=== PATIENT | female | born 1945 | race Caucasian/White ===

== ENCOUNTER 2023-08-11 13:59 | Inpatient (IN) | payer BC ==
[~2023-08-11] VITALS: Ht 167.6 cm; Wt 93.6 kg
[2023-08-11] MEDS: ALBUTEROL SULFATE 2.5 MG/3 ML NEBU NEB ONE (14:18)
[2023-08-11] MEDS: IPRATROPIUM BROMIDE 0.5 MG/2.5 ML NEBU NEB ONE (14:18)
[2023-08-11 14:20] VITALS: O2SAT 90
[2023-08-11] MEDS ORDERED: ALBUTEROL SULFATE 2.5 MG/3 ML NEBU ONE (14:21)
[2023-08-11] MEDS ORDERED: IPRATROPIUM BROMIDE 0.5 MG/2.5 ML NEBU ONE (14:22)
[2023-08-11] MEDS ORDERED: methylPREDNISolone SOD SUCC 125 MG/2 ML VIAL ONE (14:30)
[2023-08-11 14:34] LABS: BASOPHILS % (AUTO) 0.4 % (0.0-2.0); EOSINOPHILS % (AUTO) 0.6 % (0.0-7.0); HEMATOCRIT 43.1 % (31.2-41.9); HEMOGLOBIN 14.4 g/dL (10.9-14.3); LYMPHOCYTES % (AUTO) 13.6 % (20.5-51.5); MEAN CORPUSCULAR HEMOGLOBIN 30.3 uug (24.7-32.8); MEAN CORPUSCULAR HGB CONC 33 g/dL (32.3-35.6); MEAN CORPUSCULAR VOLUME 90.7 fL (75.5-95.3); MONOCYTES # (AUTO) 0.5 K/uL (0.1-1.30); MONOCYTES % (AUTO) 6.7 % (0.0-11.0); NEUTROPHILS # (AUTO) 5.6 K/uL (1.8-8.9); NEUTROPHILS % (AUTO) 78.7 % (38.5-71.5); PLATELET COUNT (AUTO) 211 K/uL (179-408); RED BLOOD CELL COUNT(AUTO) 4.76 MIL/uL (3.63-4.92); RED CELL DISTRIBUTION WIDTH 13.5 % (12.3-17.7); WHITE BLOOD COUNT (AUTO) 7.1 K/uL (3.8-11.8)
[2023-08-11] MEDS: methylPREDNISolone SOD SUCC 125 MG/2 ML VIAL IV ONE (14:35)
[2023-08-11 14:40] LABS: CALCIUM 8.2 mg/dL (8.5-10.1); CARBON DIOXIDE 26 mmol/L (21-32); CHLORIDE 105 mmol/L (98-107); CREATININE 0.6 mg/dL (0.6-1.3); GLUCOSE 167 mg/dL (74-106); POTASSIUM 4.4 mmol/L (3.5-5.1); SODIUM SERUM 139 mmol/L (136-145); UREA NITROGEN, BLOOD 12 mg/dL (7-18)
[2023-08-11 14:42] LABS: DIFFERENTIAL COMMENT 1
[2023-08-11 14:53] LABS: ALANINE AMINOTRANSFERASE 17 U/L (14-59); ALBUMIN 2.8 g/dL (3.4-5.0); ALKALINE PHOSPHATASE 117 U/L (50-136); ASPARTATE AMINOTRANSFERASE 12 U/L (15-37); BILIRUBIN,DIRECT 0.1 mg/dL (0.0-0.2); BILIRUBIN,TOTAL 0.4 mg/dL (0.2-1.0); NT-PRO BNP 169 pg/mL (0-125); TOTAL PROTEIN, SERUM 6.8 g/dL (6.4-8.2)
[2023-08-11 14:59] LABS: *BILIRUBIN,URIN NEGATIVE (NEGATIVE); *CLARITY,URINE CLEAR (CLEAR); *COLOR,URINE YELLOW (YELLOW); *KETONES,URINE NEGATIVE (NEGATIVE); *PROTEIN,URINE TRACE (NEGATIVE); LEUKOCYTE ESTERASE ,URINE 2+ (NEGATIVE); NITRITE, URINE POSITIVE (NEGATIVE); PH,URINE 6.5 (5.0-8.0); UGLUCOSE NEGATIVE (NEGATIVE)
[2023-08-11 15:00] LABS: ABG BASE EXCESS -0.5 mmol/L (-2.0-2.0); ABG HCO3 25.2 mmol/L (22.0-26.0); ABG PCO2 45.5 mmHg (35.0-48.0); ABG PH 7.362 (7.340-7.440); ABG PO2 296.1 mmHg (75.0-100.0); ABG SITE RIGHT RADIAL; ABG TOTAL HEMOGLOBIN 15.6 G/dL (12.0-16.0); AaDO2 99.7 mmHg; COHb 0.7 % (0.0-3.9); MetHb 0.5 % (0.0-1.5); O2Hb 98.7 % (94.0-97.0)
[2023-08-11 15:11] LABS: *BLOOD, URINE TRACE (NEGATIVE)
[2023-08-11 15:16] LABS: BACTERIA,URINE MANY /HPF (NONE SEEN); SQUAMOUS EPITHELIAL CELL,UR MANY /HPF (NONE SEEN); WBC,URINE 50-80 /HPF (0-3)
[2023-08-11 15:25] VITALS: O2SAT 95
[2023-08-11] MEDS ORDERED: PIPERACILLIN/TAZOBACTAM/D5W 50 ML IV ONE (16:02)
[2023-08-11] MEDS: PIPERACILLIN SODIUM/TAZOBACTAM 3.375 G in IV DEXTROSE 5% 50 ML IV ONE (16:04)
[2023-08-11] MEDS ORDERED: ONDANSETRON 4 MG/2 ML VIAL IV PRN (17:00)
[2023-08-11] MEDS ORDERED: REMEDY ESSENTIAL ZINC PASTE 113 GM TP PRN (17:00)
[2023-08-11] MEDS ORDERED: ACETAMINOPHEN 325 MG TABLET PO PRN (17:00)
[2023-08-11] MEDS ORDERED: MAGNESIUM HYDROXIDE 30 ML LIQUID UDC PO PRN (17:00)
[2023-08-11] MEDS: IV NS 1000 ML 1,000 ML IV PRN (21:07)
[2023-08-11 21:15] VITALS: BP 145/70; TEMP 97.7; O2SAT 97
[2023-08-11] MEDS: ENOXAPARIN SODIUM 40 MG/0.4 ML DISP.SYRIN SQ SCH (21:29)
[2023-08-11] MEDS ORDERED: VANCOMYCIN 1000 MG VIAL ONE (21:52)
[2023-08-11] MEDS ORDERED: VANCOMYCIN HCL 500 MG VIAL ONE (21:52)
[2023-08-11] MEDS: NORMAL SALINE IV ONE (22:07)
[2023-08-11] MEDS: VANCOMYCIN HCL IV ONE (22:07)
[2023-08-11 23:49] VITALS: BP 102/37; TEMP 97.3
[2023-08-12] MEDS ORDERED: PIPERACILLIN/TAZO 4.5 GM VIAL IV ONE (00:21)
[2023-08-12] MEDS: PIPERACILLIN SODIUM/TAZOBACTAM 4.5 G in IV DEXTROSE 5% 50 ML IV SCH (00:38)
[2023-08-12 05:30] VITALS: BP 125/57; TEMP 98.1; O2SAT 96
[2023-08-12] MEDS: PANTOPRAZOLE SODIUM 40 MG TABLET.DR PO SCH ×2 (06:40→11:00)
[2023-08-12 07:47] LABS: BASOPHILS % (AUTO) 0.3 % (0.0-2.0); HEMATOCRIT 41.4 % (31.2-41.9); HEMOGLOBIN 13.9 g/dL (10.9-14.3); LYMPHOCYTES # (AUTO) 0.7 K/uL (0.8-4.8); LYMPHOCYTES % (AUTO) 7.9 % (20.5-51.5); MEAN CORPUSCULAR HEMOGLOBIN 30.4 uug (24.7-32.8); MEAN CORPUSCULAR HGB CONC 34 g/dL (32.3-35.6); MEAN CORPUSCULAR VOLUME 90.1 fL (75.5-95.3); MONOCYTES # (AUTO) 0.2 K/uL (0.1-1.30); MONOCYTES % (AUTO) 2.8 % (0.0-11.0); NEUTROPHILS # (AUTO) 7.7 K/uL (1.8-8.9); PLATELET COUNT (AUTO) 217 K/uL (179-408); RED BLOOD CELL COUNT(AUTO) 4.59 MIL/uL (3.63-4.92); RED CELL DISTRIBUTION WIDTH 13.6 % (12.3-17.7); WHITE BLOOD COUNT (AUTO) 8.6 K/uL (3.8-11.8)
[2023-08-12 08:00] VITALS: BP 134/58; TEMP 98.1; O2SAT 96
[2023-08-12 08:00] LABS: DIFFERENTIAL COMMENT 1
[2023-08-12 08:03] LABS: ALANINE AMINOTRANSFERASE 21 U/L (14-59); ALBUMIN 2.9 g/dL (3.4-5.0); ALKALINE PHOSPHATASE 110 U/L (50-136); ASPARTATE AMINOTRANSFERASE 12 U/L (15-37); BILIRUBIN,TOTAL 0.4 mg/dL (0.2-1.0); CARBON DIOXIDE 27 mmol/L (21-32); CHLORIDE 105 mmol/L (98-107); CREATININE 0.4 mg/dL (0.6-1.3); GLUCOSE 117 mg/dL (74-106); MAGNESIUM 2.2 mg/dL (1.8-2.4); PHOSPHOROUS 3.7 mg/dL (2.5-4.9); SODIUM SERUM 140 mmol/L (136-145); TOTAL PROTEIN, SERUM 7.1 g/dL (6.4-8.2); UREA NITROGEN, BLOOD 12 mg/dL (7-18)
[2023-08-12] MEDS ORDERED: PREG75CA PO (09:42)
[2023-08-12] MEDS ORDERED: LISI-782 PO (09:42)
[2023-08-12] MEDS ORDERED: PREG150C PO (09:42)
[2023-08-12] MEDS ORDERED: LEVE500T9 PO (09:49)
[2023-08-12] MEDS ORDERED: PANT40TA49 PO (09:49)
[2023-08-12] MEDS ORDERED: AMLO-212 PO (09:49)
[2023-08-12] MEDS ORDERED: NUTR250L50 PO (09:49)
[2023-08-12] MEDS ORDERED: FLUO20CA36 PO (09:49)
[2023-08-12] MEDS ORDERED: MULT-1119 PO (09:49)
[2023-08-12] MEDS ORDERED: PRED5DRO24 LEFTEYE (09:49)
[2023-08-12] MEDS ORDERED: BRIN8DRO OP (10:02)
[2023-08-12] MEDS ORDERED: Medication Not On Formulary EA (Multivitamin (Multi Vitamin Daily) 1 TAB) PO SCH (11:00)
[2023-08-12] MEDS ORDERED: FLUOXETINE HCL 20 MG CAPSULE PO SCH (11:00)
[2023-08-12] MEDS: LISINOPRIL 5 MG TABLET PO SCH (11:25)
[2023-08-12] MEDS: levETIRAcetam 500 MG TABLET PO SCH (11:25)
[2023-08-12] MEDS: PREGABALIN 50 MG CAPSULE PO SCH (11:25)
[2023-08-12] MEDS: AMLODIPINE 5 MG TABLET PO SCH (11:26)
[2023-08-12] MEDS: FLUOXETINE HCL 20 MG CAPSULE PO SCH (11:26)
[2023-08-12 12:00] VITALS: BP 121/54; TEMP 97.8; O2SAT 96
[2023-08-12 16:21] VITALS: BP 130/55; TEMP 97.7; O2SAT 96
[2023-08-12] MEDS: VANCOMYCIN HCL 1,500 MG in IV DEXTROSE 5% 500 ML IV SCH (16:46)
[2023-08-12 20:00] VITALS: BP 119/56; TEMP 97.5; O2SAT 95
[2023-08-12] MEDS: PREGABALIN 25 MG CAPSULE PO SCH (20:43)
[2023-08-13] VITALS (7 sets, daily range): BP systolic 121–152; BP diastolic 45–65; TEMP 97.3–97.8; O2SAT 94–99
[2023-08-13] MEDS: VITAMINS A AND D OINT 42 GM TUBE TP PRN (10:12)
[2023-08-13] MEDS: REMEDY ESSENTIAL ZINC PASTE 113 GM TOP PRN (10:12)
[2023-08-13] MEDS: SIMBRINZA RIGHTEYE SCH (10:13)
[2023-08-13] MEDS: EYE RIGHTEYE SCH (10:13)
[2023-08-13] MEDS: MULTIVITAMINS,THERAPEUTIC TABLET PO SCH (10:14)
[2023-08-13] MEDS: FLUOXETINE HCL 20 MG CAPSULE PO SCH (10:23)
[2023-08-13] MEDS: prednisoLONE ACET 1% OPHT DROP 5 ML BOTTLE EACHEYE SCH (11:44)
[2023-08-13] MEDS ORDERED: EYE RIGHTEYE SCH (11:56)
[2023-08-13] MEDS ORDERED: SIMBRINZA RIGHTEYE SCH (11:56)
[2023-08-13] MEDS: DOCUSATE SODIUM 100 MG/10 ML LIQUID UDC GT SCH (17:13)
[2023-08-13] MEDS: BISACODYL 10 MG SUPP.RECT RC ONE (17:13)
[2023-08-13] MEDS: SENNOSIDES 1 TABLET PO SCH (20:27)
[2023-08-14] VITALS (9 sets, daily range): BP systolic 105–159; BP diastolic 36–71; TEMP 97.5–98.7; O2SAT 94–98
[2023-08-14] MEDS: DOCUSATE SODIUM 100 MG/10 ML LIQUID UDC PO SCH (09:07)
[2023-08-14] MEDS: EYE RIGHTEYE SCH (09:14)
[2023-08-14] MEDS: SIMBRINZA RIGHTEYE SCH (09:14)
[2023-08-14] MEDS: VANCOMYCIN HCL 1,500 MG in IV DEXTROSE 5% 500 ML IV SCH (20:35)
[2023-08-15 05:15] VITALS: BP 137/48; TEMP 98; O2SAT 96
[2023-08-15] MEDS: DOCUSATE SODIUM 100 MG CAPSULE PO SCH (08:47)
[2023-08-15 16:00] VITALS: BP 142/70; TEMP 98.6; O2SAT 98
[2023-08-15] MEDS: levoFLOXacin 500 MG TABLET PO SCH (17:35)
[2023-08-15] MEDS: JEVITY 1.2 1000 ML LIQUID GT PRN (18:43)
[2023-08-15 19:50] VITALS: BP 134/60; TEMP 97.8; O2SAT 93
[2023-08-16 00:15] VITALS: BP 104/50; TEMP 97.5; O2SAT 93
[2023-08-16 04:12] VITALS: BP 129/50; TEMP 97.6; O2SAT 95
[2023-08-16 08:00] VITALS: BP 117/56; TEMP 98; O2SAT 95
[2023-08-16 08:19] VITALS: BP 117/56
== END 2023-08-16 11:30 | disposition left against medical advice (07) | DRG 177 ==
LOC: ER 13:59 → TELE3 20:09
PROVIDERS: ADMIT Internal Medicine; ATTEND Internal Medicine
PROC: 05HF33Z Insertion of Infusion Device into Left Cephalic Vein, Percutaneous Approach (ICD-10-PCS; principal; 2023-08-14)
PROC: 0DH67UZ Insertion of Feeding Device into Stomach, Via Natural or Artificial Opening (ICD-10-PCS; 2023-08-15)
DX: J69.0 Pneumonitis due to inhalation of food and vomit (principal); J96.01 Acute respiratory failure with hypoxia; N39.0 Urinary tract infection, site not specified; Z43.1 Encounter for attention to gastrostomy; E44.0 Moderate protein-calorie malnutrition; R47.01 Aphasia; Z85.72 Personal history of non-Hodgkin lymphomas; Z92.21 Personal history of antineoplastic chemotherapy; L85.3 Xerosis cutis; L84 Corns and callosities; M21.371 Foot drop, right foot; Z96.651 Presence of right artificial knee joint; G40.909 Epilepsy, unspecified, not intractable, without status epilepticus; I10 Essential (primary) hypertension; R13.10 Dysphagia, unspecified; K59.00 Constipation, unspecified; Z68.33 Body mass index [BMI] 33.0-33.9, adult; E88.09 Other disorders of plasma-protein metabolism, not elsewhere classified
CPT/HCPCS: 36415; 36600; 71045; 74018; 82803; 83605; 83735; 84100; 84484; 85025; 85730; 87040; 93005; A6213; G0378; J1650; J2543; J2650; J2930; J3370; J3371; J3590; J7040; J7060